=== PATIENT | male | born 1995 | race African-American/Black ===

== ENCOUNTER 2017-07-10 22:26 | Emergency (ER) | payer SELFPAY ==
[~2017-07-10] VITALS: Ht 182.9 cm; Wt 77.3 kg
[2017-07-10] MEDS ORDERED: NORCO 325 MG-51 TAB PO (22:39)
[2017-07-10] MEDS ORDERED: DESYREL 50MG50 MG PO (22:39)
[2017-07-10] MEDS ORDERED: FLEXERIL5 MG PO (22:39)
[2017-07-10] MEDS ORDERED: ADDERALL5 MG PO (22:40)
[2017-07-10 23:55] VITALS: BP 111/72; PULSE 70; TEMP 97.3
== END 2017-07-10 23:55 | disposition home or self-care (01) ==
LOC: COL.ER 22:26
DX: R06.00 Dyspnea, unspecified (principal); J45.909 Unspecified asthma, uncomplicated; F41.9 Anxiety disorder, unspecified; F98.8 Other specified behavioral and emotional disorders with onset usually occurring in childhood and adolescence; F17.200 Nicotine dependence, unspecified, uncomplicated